=== PATIENT | female | born 1980 | race Caucasian/White ===

== ENCOUNTER 2018-09-06 03:03 | Emergency (ER) | payer OTHER ==
[~2018-09-06] VITALS: Ht 172.7 cm; Wt 88.1 kg
[2018-09-06 03:09] VITALS: Ht 172.7 cm; Wt 88.1 kg
[2018-09-06 05:28] VITALS: BP 123/71
== END 2018-09-06 05:28 | disposition home or self-care (01) ==
LOC: ED 03:03
DX: S91.114A Laceration without foreign body of right lesser toe(s) without damage to nail, initial encounter (principal); F17.210 Nicotine dependence, cigarettes, uncomplicated; F31.9 Bipolar disorder, unspecified; M79.7 Fibromyalgia; Z98.890 Other specified postprocedural states; Z88.1 Allergy status to other antibiotic agents; W25.XXXA Contact with sharp glass, initial encounter; Y93.89 Activity, other specified; Y92.89 Other specified places as the place of occurrence of the external cause; Y99.8 Other external cause status
CPT/HCPCS: J1885; J2001